=== PATIENT | female | born 1995 | race Caucasian/White ===

== ENCOUNTER 2022-11-11 08:47 | Observation (INO) | payer BC ==
[2022-11-11] MEDS ORDERED: Acetaminophen 500 MG TAB PO PRN (09:12)
[2022-11-11 09:23] VITALS: BMI 36.6
[2022-11-11] MEDS: Lactated Ringer's 1,000 ML IV SCH ×2 (09:59→21:07)
[2022-11-11] MEDS ORDERED: cefTRIAXone\\ROCEPHIN 1 GM in Sodium Chloride 0.9% 100 ML IVPB SCH (10:00)
[2022-11-11 10:48] LABS: SARS-CoV-2 NAA Rapid Test Not Detected (NotDetected)
[2022-11-11] MEDS ORDERED: Lidocaine 2% Viscous Solution 10 ML, Aluminum & Magnesium Hydroxide 30 ML SSW SCH (15:00)
[2022-11-11] MEDS: Simethicone Chewable 80 MG TAB PO SCH (19:35)
[2022-11-11] MEDS: Famotidine 20 MG TAB PO SCH (21:01)
[2022-11-11] MEDS: Magnesium Oxide 400 MG TAB PO SCH (21:01)
[2022-11-11] MEDS: hydrOXYzine 25 MG TAB PO SCH (21:02)
[2022-11-11] MEDS: Escitalopram Oxalate 20 mg Tablet PO SCH (21:03)
[2022-11-11] MEDS: Prenatal Vitamin 1 TAB PO SCH (21:23)
[2022-11-12] MEDS: Simethicone Chewable 80 MG TAB PO SCH ×4 (00:28→18:09)
[2022-11-12 04:05] LABS: ALT (SGPT) 91 U/L (8-55); AST (SGOT) 58 U/L (5-34); Albumin 2.9 g/dL (3.5-5.0); Alkaline Phosphatase 61 U/L (40-110); Anion Gap 12 mmol/L (10-20); BUN (Urea Nitrogen) Less than 4 mg/dL (7.0-18.7); Bilirubin, Total 0.2 mg/dL (0.2-1.2); Calc. Creatinine Clearance 211 mL/min (70-130); Calcium 8.6 mg/dL (7.8-10.44); Carbon Dioxide 21 mmol/L (22-29); Chloride 107 mmol/L (98-107); Estimated GFR 125; Globulin 2.7 g/dL (2.4-3.5); Glucose 99 mg/dL (70-105); Potassium 3.8 mmol/L (3.5-5.1); Protein, Total 5.6 g/dL (6.0-8.3); Sodium 136 mmol/L (136-145)
[2022-11-12 04:10] LABS: Hemoglobin 10.2 g/dL (12.0-15.5); Mean Corpuscular HGB CONC 33.3 g/dL (32.0-36.0); Mean Corpuscular Hemoglobin 30.3 pg (27.0-33.0); Mean Corpuscular Volume 90.8 fl (81.6-98.3); Mean Platelet Volume 11.2 fl (7.4-10.4); Platelet Count 229 10x3/uL (150-450); RBC Distribution Width 13.2 % (11.5-14.5); Red Blood Cell (RBC) Count 3.37 10x6/uL (3.90-5.03); White Blood Cell (WBC) Count 11.6 10x3/uL (3.5-10.5)
[2022-11-12 04:55] LABS: MDiff Complete? YES
[2022-11-12] MEDS: Levothyroxine Sodium 75 MCG TAB PO SCH (05:56)
[2022-11-12] MEDS: Lactated Ringer's 1,000 ML IV SCH (06:32)
[2022-11-12 06:40] LABS: Eosinophils 2 % (0-10); Lymphocytes 35 % (21-51); Monocytes 5 % (0-10); Neutrophil 49 % (42-75); Reactive Lymphocytes 9 % (0-10)
[2022-11-12 06:42] LABS: Platelet Morphology Comment Appears Adequate; RBC Morphology Normal
[2022-11-12] MEDS: Famotidine 20 MG TAB PO SCH ×2 (08:30→21:00)
[2022-11-12] MEDS: Aripiprazole 10 MG TAB PO SCH (08:30)
[2022-11-12] MEDS ORDERED: cefTRIAXone\\ROCEPHIN 1 GM in Sodium Chloride 0.9% 100 ML IVPB SCH (09:00)
[2022-11-12] MEDS ORDERED: Cephalexin 500 MG CAP PO SCH (09:00)
[2022-11-12] MEDS ORDERED: Dexamethasone 4 mg/ml Vial ONE (09:17)
[2022-11-12] MEDS ORDERED: Ondansetron PF 4 MG/2 ML Vial ONE (09:17)
[2022-11-12] MEDS ORDERED: Succinylcholine 200 MG/10 ml SYRINGE FS ONE (09:17)
[2022-11-12] MEDS ORDERED: Fentanyl 100 MCG/2 ML VIAL ONE (09:17)
[2022-11-12] MEDS ORDERED: Rocuronium Bromide 10 MG/ML (10ML VIAL) ONE (09:17)
[2022-11-12] MEDS ORDERED: Lidocaine 1% PF 5 ML VIAL ONE (09:17)
[2022-11-12] MEDS ORDERED: PROPOFOL 40 ML ONE (09:17)
[2022-11-12] MEDS ORDERED: CEFAZOLIN 1 GM VIAL ONE (09:36)
[2022-11-12] MEDS ORDERED: Bupivacaine HCl 0.5%/Epinephrine 1:200,000/PF 30 ml Vial ONE (09:37)
[2022-11-12] MEDS ORDERED: Glycopyrrolate 0.2 MG/ML 5 ML SYRINGE ONE (10:00)
[2022-11-12] MEDS ORDERED: Acetaminophen 325 MG TAB PO PRN (10:35)
[2022-11-12] MEDS ORDERED: Butorphanol Tartrate 1 MG/ML VIAL SLOW IVP PRN (11:00)
[2022-11-12] MEDS: HYDROcodone/Acetaminophen 5/325 mg Tablet PO PRN ×3 (11:56→21:01)
[2022-11-12] MEDS: Cephalexin 500 MG CAP PO SCH ×2 (13:00→17:33)
[2022-11-12] MEDS ORDERED: EPINEPHrine 1 MG/ML AMP ONE (17:07)
[2022-11-12] MEDS: Prenatal Vitamin 1 TAB PO SCH (21:00)
[2022-11-12] MEDS: hydrOXYzine 25 MG TAB PO SCH (21:00)
[2022-11-12] MEDS: Magnesium Oxide 400 MG TAB PO SCH (21:02)
[2022-11-12] MEDS: Escitalopram Oxalate 20 mg Tablet PO SCH (21:02)
[2022-11-13] MEDS: Cephalexin 500 MG CAP PO SCH ×2 (00:28→06:30)
[2022-11-13] MEDS: Simethicone Chewable 80 MG TAB PO SCH ×2 (00:28→06:30)
[2022-11-13] MEDS: HYDROcodone/Acetaminophen 5/325 mg Tablet PO PRN ×2 (03:20→08:18)
[2022-11-13] MEDS: Levothyroxine Sodium 75 MCG TAB PO SCH (05:58)
[2022-11-13] MEDS: Famotidine 20 MG TAB PO SCH (08:20)
[2022-11-13] MEDS: Aripiprazole 10 MG TAB PO SCH (08:21)
[2022-11-13 11:11] VITALS: BP 112/62; TEMP 98
== END 2022-11-13 11:39 | disposition home or self-care (01) ==
LOC: CSHPED 08:47
PROVIDERS: ADMIT Obstetrics & Gynecology; ATTEND Obstetrics & Gynecology
PROC: 0DTJ4ZZ Resection of Appendix, Percutaneous Endoscopic Approach (ICD-10-PCS; principal; 2022-11-13)
DX: O99.612 Diseases of the digestive system complicating pregnancy, second trimester (principal); K35.30 Acute appendicitis with localized peritonitis, without perforation or gangrene; O23.42 Unspecified infection of urinary tract in pregnancy, second trimester; N39.0 Urinary tract infection, site not specified; O99.282 Endocrine, nutritional and metabolic diseases complicating pregnancy, second trimester; E03.9 Hypothyroidism, unspecified; R74.01 Elevation of levels of liver transaminase levels; O99.342 Other mental disorders complicating pregnancy, second trimester; F41.9 Anxiety disorder, unspecified; F32.A Depression, unspecified; Z79.899 Other long term (current) drug therapy; Z88.5 Allergy status to narcotic agent; Z20.822 Contact with and (suspected) exposure to COVID-19; Z3A.19 19 weeks gestation of pregnancy
CPT/HCPCS: 74181; 80053; 85025; 88304; 96361; 96365; 96375; 96376; A4649; C1776; G0378; J0171; J0595; J0690; J0696; J1100; J2405; J2704; J3010; J3490; J7120